=== PATIENT | male | born 1965 | race Native Hawaiian/Other Pacific Islander ===

== ENCOUNTER 2019-09-28 02:41 | Outpatient (CLI) | payer OTHER | END 2019-09-28 02:55 | disposition short-term general hospital (02) | LOC: AMB 02:41 | DX: I21.3 ST elevation (STEMI) myocardial infarction of unspecified site (principal) | CPT/HCPCS: A0425; A0427 ==

== ENCOUNTER 2019-09-28 03:01 | Emergency (ER) | payer OTHER ==
[~2019-09-28] VITALS: Ht 188 cm; Wt 115.7 kg
[2019-09-28 03:19] LABS: PLATELET COUNT 247 K/uL (142-355)
[2019-09-28 03:27] LABS: POTASSIUM 3.8 mmol/L (3.6-5.2); SODIUM 141 mmol/L (136-145)
[2019-09-28 04:46] VITALS: BP 152/98; TEMP 98.2
== END 2019-09-28 05:16 | disposition home or self-care (01) ==
LOC: ED 03:01
PROVIDERS: Student in an Organized Health Care Education/Training Program
DX: I16.0 Hypertensive urgency (principal); R51 Headache; R53.1 Weakness; R55 Syncope and collapse; F17.210 Nicotine dependence, cigarettes, uncomplicated
CPT/HCPCS: 80048; 84484; 85027; 93005; 96374; 96375; 96376; 99284; J1885; J2405; J3490